=== PATIENT | female | born 1990 | race Caucasian/White ===

== ENCOUNTER 2017-05-21 06:00 | Inpatient (IN) ==
[2017-05-21] MEDS ORDERED: MEPERIDINE 50 MG/1 ML VIAL IV PRN (06:14)
[2017-05-21] MEDS ORDERED: BUTORPHANOL 2 MG/ML VIAL IV PRN (06:14)
[2017-05-21] MEDS ORDERED: ONDANSETRON 4 MG/2 ML VIAL IV PRN (06:14)
[2017-05-21] MEDS ORDERED: ACETAMINOPHEN 325 MG TABLET PO PRN (06:14)
[2017-05-21] MEDS ORDERED: OXYTOCIN/LR 20 UNIT/1,000 ML BAG IV SCH (06:30)
[2017-05-21] MEDS ORDERED: LACTATED RINGERS 1,000 ML IV SCH (06:30)
[2017-05-21 06:48] LABS: Basophils % 0.2 % (0.0-0.8); Eosinophils # 0.1 10*3/uL (0.0-0.87); Eosinophils % 0.6 % (0.00-10.9); Hematocrit 32.5 VOL% (35.7-47.0); Hemoglobin 11.4 GM/DL (12.0-16.0); Immature Granulocytes % 0.9 %; Immature Granulocytes Absolute 0.11 #; Lymphocytes # 2.6 10*3/uL (1.4-4.0); Lymphocytes % 21.7 % (21.3-54.2); Mean Corpuscular HGB Conc 35.1 GM/DL (32-36); Mean Corpuscular Hemoglobin 29 PG (27-34); Mean Corpuscular Volume 83.3 FL (87-102); Mean Platelet Volume 9.5 FL (9.6-12.0); Monocytes # 0.9 10*3/uL (0.11-0.8); Monocytes % 7.3 % (1.7-12.7); Neutrophils # 8.4 10*3/uL (1.4-7.4); Neutrophils % 69.3 % (38.7-73.9); Platelet Count 267 T/CUMM (130-400); White Blood Count 12.1 T/CUMM (4-12)
[2017-05-21 07:15] LABS: Alanine Aminotransferase 20 U/L (13-56); Albumin 2.7 G/DL (3.4-5.0); Alkaline Phosphatase 161 U/L (45-117); Aspartate Amino Transferase 17 U/L (0-37); Bilirubin,Total < 0.39 MG/DL (0.2-1.0); Blood Urea Nitrogen 10 MG/DL (7-18); Calcium 8.6 MG/DL (8.5-10.1); Glucose 88 MG/DL (74-106); Osmolality,Calculated 272.7 MOS/KG (273-304); Potassium 3.9 MMOL/L (3.5-5.1); Sodium 138 MMOL/L (136-145); Total Protein 5.9 G/DL (6.4-8.3)
[2017-05-21] MEDS ORDERED: LACTATED RINGERS 1,000 ML IV ONE (10:53)
[2017-05-21] MEDS ORDERED: fentaNYL 2 MCG/ROPIV 0.2% EPID 150 ML EPIDURAL SCH (10:53)
[2017-05-21] MEDS ORDERED: hydrOXYzine HCL 25 MG/1 ML VIAL IM PRN (10:53)
[2017-05-21] MEDS ORDERED: ePHEDrine 50 MG/ML AMP IV PRN (10:53)
[2017-05-21] MEDS ORDERED: CITRIC ACID/SODIUM CITRATE 30 ML UDCUP PO ONE (10:53)
[2017-05-21] MEDS ORDERED: PROMETHAZINE 25 MG/1 ML VIAL IM ONE (10:53)
[2017-05-21] MEDS ORDERED: ONDANSETRON 4 MG/2 ML VIAL IV ONE (10:53)
[2017-05-21] MEDS ORDERED: FAMOTIDINE 20 MG/2 ML VIAL IV ONE (10:53)
[2017-05-21] MEDS ORDERED: diphenhydrAMINE 50 MG/1 ML VIAL IV PRN ×2 (10:53)
[2017-05-21 14:25] LABS: Apearance,Urine CLEAR (Clear); Bilirubin,Urine Negative (Negative); Blood, Urine Negative (Negative); Glucose,Urine (UA) Negative (Negative); Ketones,Urine 5 mg/dL (Negative); Mucus,Urine Occasional /LPF (Occasional); Nitrite,Urine Negative (Negative); Protein,Urine Negative; RBC,Urine 3 /HPF (0-4); Squamous Epithelial Cell,Urine Occasional /HPF (0-10); Urine Color Yellow (Yellow); Urine Specific Gravity 1.012 (1.001-1.035); Urine Urobilinogen < 2.0 EU/DL (0.2-1.0); WBC,Urine <1 /HPF (0-6)
--- NOTE | 2017-05-21 18:49 | Operative Note ---
Date of procedure: 05/21/17 Pre-op diagnosis: Labor Induction, 39 weeks gestation Post-op diagnosis: other (Vaginal Delivery, 39 weeks gestation, 2nd degree perineal laceration) Procedure: Patient complete at 1249. Pushing began with UCs. viable male , DALTON position @ 1339. Shoulders and body delivered without difficulty. Spontaneous cry and resp noted. Mouth and nose bulb suctioned. Infant to mother's abd. Cord clamped and cut when pulsations stopped. Moderate amount bleeding noted. Pitocin began at 250mL/hr per IV pump. Manual assisted delivery of placenta at 1346. Placenta intact with 3 vessel cord. Pitocin infusion increased to bolus rate. Perineum inspected. 2nd degree perineal laceration noted. Vag pack placed and laceration repaired with 2/0 and 3/0 chromic suture under epidural anesthesia. Good hemostasis. Fundus firm @ U-2, ML. Mother and baby stable. Apgars 8/9, Weight 7#11oz. Anesthesia: epidural Surgeon / Physician: Fanny De Leon Estimated blood loss: other (300mL) Specimens: other (Placenta to pathology) Condition: stable Disposition: floor Results - Labs CBC & BMP: 05/21/17 06:41 05/21/17 06:41 Discharge Plan - Discharge Medications No Action Vit No.124/Iron/Folic [ Vitamin Tablet] 1 tablet PO DAILY MDD one tab - Follow Up or Referral - Forms/Instructions
[2017-05-21] MEDS: DOCUSATE SODIUM 100 MG CAPSULE PO SCH (19:45)
[2017-05-21] MEDS: IBUPROFEN 800 MG TABLET PO PRN (19:45)
--- NOTE | 2017-05-21 21:54 | History and Physical Update ---
History and Physical Update - History and Physical H&P was reviewed, the patient examined and there: are no changes in the patients condition since last H&P was completed. - Dictation Physical: refer to scanned H&P - Physical Exam Mental Status: alert and oriented Heart: regular rate and rhythm Lung: clear to auscultation Abdomen: within normal limits Vitals: within normal limits History and Physical Changes: 39 weeks for induction. No complications.
[2017-05-22] MEDS ORDERED: BENZOCAINE 20%/MENTHOL 0.5% SPRAY 56 GM CAN TOP PRN (04:25)
[2017-05-22] MEDS: IBUPROFEN 800 MG TABLET PO PRN ×2 (04:29→16:36)
[2017-05-22 05:55] LABS: Basophils % 0.3 % (0.0-0.8); Eosinophils # 0.1 10*3/uL (0.0-0.87); Eosinophils % 1.2 % (0.00-10.9); Hematocrit 30.7 VOL% (35.7-47.0); Hemoglobin 10.3 GM/DL (12.0-16.0); Immature Granulocytes % 0.6 %; Immature Granulocytes Absolute 0.07 #; Lymphocytes # 2.8 10*3/uL (1.4-4.0); Lymphocytes % 24.1 % (21.3-54.2); Mean Corpuscular HGB Conc 33.6 GM/DL (32-36); Mean Corpuscular Hemoglobin 29 PG (27-34); Mean Corpuscular Volume 85.3 FL (87-102); Monocytes # 0.8 10*3/uL (0.11-0.8); Monocytes % 7.3 % (1.7-12.7); Neutrophils # 7.6 10*3/uL (1.4-7.4); Neutrophils % 66.5 % (38.7-73.9); Platelet Count 213 T/CUMM (130-400); White Blood Count 11.4 T/CUMM (4-12)
--- NOTE | 2017-05-22 07:44 | Anesthesia Post-Op ---
Anesthesia Post OP - Post Ansesthetic Evaluation Patient seen in post op: Yes Resp: within normal limits CV: within normal limits Mental: within normal limits Temp: within normal limits Xptw-Vk-Iynvdigzm: within normal limits Nausea and Vomiting: within normal limits Pain: within normal limits
[2017-05-22] MEDS: DOCUSATE SODIUM 100 MG CAPSULE PO SCH ×2 (08:30→21:29)
--- NOTE | 2017-05-22 08:47 | OB/GYN Progress Note ---
Assessment and Plan (1) Vaginal delivery Status: Acute Assessment and plan: Routine care Current Visit: Yes (2) 39 weeks gestation of Status: Acute Current Visit: Yes PERSONAL ATTENDANT - PN: Subj Interval history: PPD#1 Doing well without complaint. Exam PERSONAL ATTENDANT - Constitutional Vitals: Vital Signs Temp Pulse Resp BP BP Pulse Ox 05/22/17 07:53 97.4 F L 79 18 95/56 97 05/22/17 04:29 97.1 F L 77 20 106/70 99 05/22/17 02:00 18 05/22/17 00:00 96.8 F L 79 18 104/71 98 05/21/17 20:18 74 20 96/62 96 05/21/17 19:20 98.1 F 90 20 109/69 109/69 97 05/21/17 18:20 95 H 20 117/59 05/21/17 17:50 95 H 20 102/50 05/21/17 17:20 97.4 F L 97 H 20 121/61 05/21/17 16:00 98.9 F 103 H 20 114/58 05/21/17 12:00 90 18 102/55 General appearance: normal weight, no acute distress - Head Head exam: Present: normal inspection, normocephalic - Eye Eye exam: Present: EOMI - Respiratory Respiratory exam: Present: clear to auscultation bilaterally - Cardiovascular Cardiovascular exam: Present: regular rate and rhythm - GI/Abdominal GI/Abdominal exam: Present: soft (fundus firm, nontender) - Extremities Exam Extremities exam: Present: normal inspection - Neurological Exam Neurological exam: Present: alert, oriented X3 - Psychiatric Psychiatric exam: Present: normal affect, normal mood - Skin Skin exam: Present: normal color, warm Results - Labs CBC & BMP: 05/22/17 04:40 05/21/17 06:41 Lab Results: I have reviewed the past 24 hour labs
[2017-05-22] MEDS ORDERED: MULTIVITAMIN (PRENATAL) TABLET PO SCH (09:00)
[2017-05-23 07:32] VITALS: BP 100/68
--- NOTE | 2017-05-23 08:42 | Discharge Summary ---
Hospital Course - Hospital Course Hospital Course: Pt delivered without complication. Her course has been unremarkable. Diagnosis - Discharge Diagnosis (1) Vaginal delivery Status: Acute (2) 39 weeks gestation of Status: Acute Specialty Discharge - Follow Up or Referrals Follow up with: Vera Minor DO [Physician] - Discharge Plan - Discharge Data Disposition: Disch To Home/Self Care Condition at Discharge: Stable Discharge Diet: regular diet Activity: other (pelvic rest x 6 wks) Hygiene: may shower Weight Bearing at Discharge: full weight bearing Driving: no restrictions (if not taking narcotics) Contact your physician if you experience:: fever over 101, Difficulty voiding, Redness or swelling, Nausea/Vomiting, Shortness of breath, Bleeding, pain uncontrolled by pain medications - Discharge Medications New Ibuprofen Tab [Motrin Tab] 800 mg PO Q6H PRN #30 tablet PRN Reason: Pain No Action Vit No.124/Iron/Folic [ Vitamin Tablet] 1 tablet PO DAILY MDD one tab - Follow Up or Referral Follow Up: Vera Minor DO [Physician] - (6 wks) - Forms/Instructions Instructions: Perineal Care (DC), Vaginal Delivery (DC), Bleeding (DC) Exam - Constitutional Vitals: Period Temp Pulse Resp BP Sys/Paulino Pulse Ox Last 24 Hr 97.3 F-99.3 F 84-118 18-20 93-115/58-70 98-99 General appearance: normal weight, no acute distress - Head Head exam: Present: normal inspection, normocephalic - Eye Eye exam: Present: EOMI - Respiratory Respiratory exam: Present: clear to auscultation bilaterally - Cardiovascular Cardiovascular exam: Present: regular rate and rhythm - GI/Abdominal GI/Abdominal exam: Present: soft (fundus firm, nontender) - Extremities Exam Extremities exam: Present: normal inspection - Neurological Exam Neurological exam: Present: alert, oriented X3 - Psychiatric Psychiatric exam: Present: normal affect, normal mood - Skin Skin exam: Present: normal color, warm Discharge Results Procedures and tests throughout hospitalization: Pending Orders 05/21/17 06:14 Urinalysis Routine DS: Provider Date of admission: 05/21/17 06:14 Primary care physician: . No PCP Attending physician on admission: Vera Minor DO Consults: 05/21/17 06:14 Consult to Anesthesiology [CONS] Routine Consulting Provider: Reason for Anesthesiology: Epidural Consult Comment: Epidural for pain managment Discharging clinician: Vera Minor DO Expected date of discharge: 05/23/17
--- NOTE | 2017-05-23 11:17 | Pathology Report from [facility] ---
[facility] ACCESSION # : [id number] PATIENT NAME : Lola Short ORDERING DR : RONAL KELLY CLINICAL HX: G1 EDC 05/23 POST-OP DX: Same SPECIMEN INFO: Placenta GROSS DESCRIPTION: Received fresh labeled with the patients name and consists of a 478 gram placenta which measures 16.0 x 15.0 x 4.0 cm. membranes are hernandez and translucent. The umbilical cord measures 25.5 cm, contains three vessels and is eccentrically inserted. The surface is blue-dyson and intact. The maternal surface displays intact red-dyson cotyledons with a few scattered calcifications seen. Sectioning reveals no gross abnormalities. Sections submitted: A membranes and cord, B and maternal surfaces. DIAGNOSIS FOR LOLA SHORT: PLACENTA, MEMBRANES, UMBILICAL CORD: Focal placental infarction with dystrophic calcification, mild intervillous blood. Tri-vessel umbilical cord, eccentrically inserted. Membranes with focal chronic inflammation, attached blood. COLLECTED DATE: 05/22/2017 [facility] REPORT DATE: 05/23/2017 ELECTRONICALLY SIGNED BY: Jolanta Saavedra M.D. 05/23/2017 - 9:49:44 MTDSophia
== END 2017-05-23 12:05 | disposition home or self-care (01) | DRG 775 ==
LOC: N.LDOUT 06:00 → N.LD 06:03 → N.OB 17:29
PROVIDERS: ADMIT Obstetrics & Gynecology; ATTEND Obstetrics & Gynecology

== ENCOUNTER 2020-09-13 15:37 | Inpatient (IN) ==
[2020-09-13] MEDS ORDERED: LACTATED RINGERS 1,000 ML IV SCH (18:30)
[2020-09-14] MEDS ORDERED: MEPERIDINE 50 MG/1 ML VIAL IV PRN (07:16)
[2020-09-14] MEDS ORDERED: BUTORPHANOL 2 MG/ML VIAL IV PRN (07:16)
[2020-09-14] MEDS ORDERED: OXYTOCIN/LR 20 UNIT/1,000 ML BAG IV SCH (07:30)
[2020-09-14] MEDS ORDERED: FAMOTIDINE 20 MG/2 ML VIAL IV ONE (07:30)
[2020-09-14] MEDS ORDERED: LACTATED RINGERS 1,000 ML IV SCH (07:30)
[2020-09-14] MEDS ORDERED: CITRIC ACID/SODIUM CITRATE 30 ML UDCUP PO ONE (07:30)
[2020-09-14] MEDS ORDERED: LACTATED RINGERS 1,000 ML IV ONE (07:30)
[2020-09-14] MEDS ORDERED: NALOXONE 0.4 MG/ML VIAL IV PRN (07:31)
[2020-09-14] MEDS ORDERED: diphenhydrAMINE 50 MG/1 ML VIAL IV PRN ×2 (07:31)
[2020-09-14] MEDS ORDERED: PROMETHAZINE 25 MG/1 ML VIAL IM ONE (07:31)
[2020-09-14] MEDS ORDERED: hydrOXYzine HCL 25 MG/1 ML VIAL IM PRN (07:31)
[2020-09-14] MEDS ORDERED: ePHEDrine 50 MG/ML VIAL IV PRN (07:31)
[2020-09-14 07:45] LABS: Basophils % 0.2 % (0.0-0.8); Eosinophils # 0.1 10*3/uL (0.0-0.87); Eosinophils % 0.5 % (0.00-10.9); Hemoglobin 11.6 GM/DL (12.0-16.0); Immature Granulocytes Absolute 0.13 #; Lymphocytes # 2.3 10*3/uL (1.4-4.0); Lymphocytes % 17.5 % (21.3-54.2); Mean Corpuscular HGB Conc 33.1 GM/DL (32-36); Mean Corpuscular Volume 86.4 FL (87-102); Mean Platelet Volume 8.7 FL (9.6-12.0); Monocytes % 5.5 % (1.7-12.7); Neutrophils % 75.3 % (38.7-73.9); Platelet Count 270 T/CUMM (130-400); Red Blood Count 4.05 MC/CUMM (3.8-5.5); Red Cell Distribution Width 13.5 % (9.3-17.3); White Blood Count 13.2 T/CUMM (4-12)
[2020-09-14] MEDS ORDERED: fentaNYL 2 MCG/ROPIV 0.2% EPID 100 ML EPIDURAL SCH (08:00)
[2020-09-14 08:05] LABS: Alanine Aminotransferase 15 U/L (13-56); Albumin 2.5 G/DL (3.4-5.0); Alkaline Phosphatase 183 U/L (45-117); Aspartate Amino Transferase 13 U/L (0-37); Bilirubin,Total < 0.39 MG/DL (0.2-1.0); Blood Urea Nitrogen 5 MG/DL (7-18); Calcium 8.4 MG/DL (8.5-10.1); Estimated Glom Filtration Rate 154 ML/MIN; Glucose 97 MG/DL (74-106); Osmolality,Calculated 273.5 MOS/KG (273-304); Total Protein 6.5 G/DL (6.4-8.3); Uric Acid 2.5 MG/DL (2.6-6.0)
[2020-09-14] MEDS ORDERED: miSOPROStoL 200 MCG TABLET ONE (10:53)
[2020-09-14] MEDS ORDERED: LIDOCAINE 1% 50 ML VIAL ONE (11:08)
[2020-09-14 11:24] LABS: Cord Venous Blood HCO3 24.7 MMOL/L; Cord Venous Blood PO2 28.5
[2020-09-14 11:31] LABS: Bacteria,Urine Occasional /HPF (Few); Bilirubin,Urine Negative (Negative); Blood, Urine Negative (Negative); Glucose,Urine (UA) Negative (Negative); Ketones,Urine Negative (Negative); Nitrite,Urine Negative (Negative); Protein,Urine Negative; Squamous Epithelial Cell,Urine Occasional /HPF (0-10); Urine Appearance CLEAR (Clear); Urine Color Straw (Yellow); Urine Specific Gravity 1.006 (1.001-1.035); Urine Urobilinogen < 2.0 EU/DL (0.2-1.0)
[2020-09-14] MEDS ORDERED: BISACODYL 10 MG SUPP RECTAL PRN (15:03)
[2020-09-14] MEDS ORDERED: oxyCODONE/ACETAMINOPHEN 5-325 MG TABLET PO PRN ×2 (15:03)
[2020-09-14] MEDS ORDERED: HYDROCORTISONE 2.5% RECTAL CREAM 30 GM TUBE TOP PRN (15:03)
[2020-09-14] MEDS ORDERED: BENZOCAINE 20%/MENTHOL 0.5% SPRAY 56 GM CAN TOP PRN (15:03)
[2020-09-14] MEDS ORDERED: MEASLES/MUMPS/RUBELLA VACCINE 0.5 ML VIAL SUBCUT ONE (15:03)
[2020-09-14] MEDS ORDERED: LANOLIN 50% CREAM 0.3 OZ TUBE TOP PRN (15:03)
[2020-09-14] MEDS ORDERED: RHO(D) IMMUNE GLOBULIN 300 MCG SYRINGE IM ONE (15:03)
[2020-09-14] MEDS ORDERED: ACETAMINOPHEN 325 MG TABLET PO PRN (15:03)
[2020-09-14] MEDS ORDERED: WITCH HAZEL PADS 100/JAR TOP PRN (15:03)
[2020-09-14] MEDS ORDERED: ONDANSETRON 4 MG/2 ML VIAL IV PRN (15:03)
[2020-09-14] MEDS ORDERED: DIPH/TET/ACEL PERT BOOSTER VACCINE 0.5 ML VIAL IM ONE (15:03)
[2020-09-14] MEDS ORDERED: OXYTOCIN/LR 20 UNIT/1,000 ML BAG IV ONE (15:03)
[2020-09-14] MEDS: IBUPROFEN 800 MG TABLET PO PRN ×2 (15:30→21:03)
[2020-09-14] MEDS: DOCUSATE SODIUM 100 MG CAPSULE PO SCH (21:03)
[2020-09-15] MEDS: IBUPROFEN 800 MG TABLET PO PRN ×2 (03:38→09:46)
[2020-09-15 04:37] LABS: Basophils % 0.3 % (0.0-0.8); Eosinophils # 0.1 10*3/uL (0.0-0.87); Eosinophils % 0.8 % (0.00-10.9); Hematocrit 29.5 VOL% (35.7-47.0); Hemoglobin 9.8 GM/DL (12.0-16.0); Immature Granulocytes % 0.8 %; Immature Granulocytes Absolute 0.08 #; Lymphocytes # 2.3 10*3/uL (1.4-4.0); Lymphocytes % 21.6 % (21.3-54.2); Mean Corpuscular HGB Conc 33.2 GM/DL (32-36); Mean Corpuscular Volume 86.5 FL (87-102); Monocytes % 5.9 % (1.7-12.7); Neutrophils % 70.6 % (38.7-73.9); Platelet Count 213 T/CUMM (130-400); Red Blood Count 3.41 MC/CUMM (3.8-5.5); Red Cell Distribution Width 13.7 % (9.3-17.3); White Blood Count 10.6 T/CUMM (4-12)
[2020-09-15 09:11] VITALS: BP 109/62
[2020-09-15] MEDS: DOCUSATE SODIUM 100 MG CAPSULE PO SCH (09:47)
[2020-09-15] MEDS ORDERED: INFLUENZA VIRUS VACCINE 0.5 ML SYRINGE IM ONE (10:23)
[2020-09-16] MEDS ORDERED: INFLUENZA VIRUS VACCINE 0.5 ML SYRINGE IM ONE (08:28)
== END 2020-09-15 12:40 | disposition home or self-care (01) | DRG 807 ==
LOC: N.LDOUT 15:37 → N.LD 15:39 → N.OB 09-14 14:00
PROVIDERS: ADMIT Obstetrics & Gynecology; ATTEND Obstetrics & Gynecology